=== PATIENT | female | born 1960 | race Caucasian/White ===

== ENCOUNTER 2018-08-25 09:20 | Emergency (ER) | payer BC ==
--- NOTE | 2018-08-25 09:40 | ED ---
GI/ HPI - HPI Summary HPI Summary: This patient is a 58 year old F presenting to [facility] with a chief complaint of vaginal bleeding since last night. Patient had an ablation 15 years ago and a trachelectomy July 2018. She had a checkup with her doctor on 08/22/2018. The patient rates the pain 4/10 in severity. Patient reports cramping. Patient denies weakness, lightheadedness, dizziness, feeling any masses, and fever. She reports that the bleeding was heavy last night with clots, but today it has bled less with no clots. Her LNMP was 12-14 years ago. - History of Current Complaint Chief Complaint: EDOBProblems Time Seen by Provider: 08/25/18 09:25 Stated Complaint: VAGINAL BLEEDING Hx Obtained From: Patient Onset/Duration: Started Hours Ago - Last night, Still Present Timing: Lasting Hours Severity: Moderate Current Severity: Mild Vaginal Bleeding Description: Clots Pain Intensity: 4 Associated Signs and Symptoms: Positive: Other: - Reports cramping. Denies lightheadedness or feeling any masses.. Negative: Dizziness, Weakness, Fever - Allergy/Home Medications Allergies/Adverse Reactions: Allergies Allergy/AdvReac Type Severity Reaction Status Date / Time No Known Allergies Allergy Verified 08/25/18 09:25 PMH/Surg Hx/FS Hx/Imm Hx Endocrine/Hematology History: Denies: Hx Diabetes Cardiovascular History: Denies: Hx Hypertension Infectious Disease History: No Infectious Disease History: Denies: Traveled Outside the [place] in Last 30 Days - Family History Known Family History: Positive: Other - Cancer Negative: Cardiac Disease, Diabetes - Social History Alcohol Use: Daily Alcohol Amount: 2-3 drinks a day Hx Substance Use: No Hx Tobacco Use: No Review of Systems Negative: Fever Positive: pain - Cramps, other - Reports vaginal bleeding. Denies feeling any masses. Neurological: Other - Denies lightheadedness Negative: Weakness All Other Systems Reviewed And Are Negative: Yes Physical Exam - Summary Physical Exam Summary: Appearance: Well appearing, no pain distress Skin: warm, dry, reflects adequate perfusion Head/face: normal Eyes: EOMI, ANGUS ENT: mucous membranes moist Neck: supple, non-tender Respiratory: CTA, breath sounds present Cardiovascular: RRR, pulses symmetrical Abdomen: non-tender, soft Bowel Sounds: present Musculoskeletal: normal, strength/ROM intact Neuro: normal, sensory motor intact, A&Ox3 GIGU: Tiny amount of blood from the cervix, but not bleeding of the cervix. No uterine tenderness or enlargement Triage Information Reviewed: Yes Vital Signs On Initial Exam: Initial Vitals Temp Pulse Resp BP Pulse Ox 97.1 F 69 14 153/79 96 08/25/18 09:25 18 09:25 18 09:25 08/25/18 09:25 08/25/18 09:25 Vital Signs Reviewed: Yes Diagnostics - Vital Signs Vital Signs Temp Pulse Resp BP Pulse Ox 08/25/18 09:25 97.1 F 69 14 153/79 96 - Laboratory Lab Statement: Any lab studies that have been ordered have been reviewed, and results considered in the medical decision making process. - Ultrasound No standard instances Ultrasound Interpretation Completed By: Radiologist - Transvaginal US. 11:37. Normal thickness of the endometrium. No adnexal masses are noted. ED Physician has reviewed this imaging report. GIGU Course/Dx - Course Course Of Treatment: Nurse's note reviewed. Patient presents 1 month after LEEP procedure on her cervix with vaginal bleeding. She is postmenopausal and experienced some bleeding with clotting. On exam there is minimal blood from the cervix rather than on it. Ultrasound is negative. She will likely need endometrial biopsy outpatient. I will place her on [place] and have her follow- up closely with [facility]. - Diagnoses Differential Diagnoses - Female: Other - Fibroid bleeding, dysfunctional bleeding, endometrial cancer, bleeding of the cervix itself Provider Diagnoses: Post-menopausal bleeding Discharge - Sign-Out/Discharge Documenting (check all that apply): Patient Departure - D/C - Discharge Plan Condition: Improved Disposition: HOME Prescriptions: Mefenamic Acid 250 mg PO TID #9 capsule Patient Education Materials: Dysfunctional Uterine Bleeding (ED) Referrals: Nicole Ortez MD [Medical Doctor] - Sukhdev Trujillo MD [Primary Care Provider] - Additional Instructions: You will need to be reevaluated by your OBGYN and will likely need an ENDOMETRIAL biopsy. - Billing Disposition and Condition Condition: IMPROVED Disposition: Home - Attestation Statements Document Initiated by Scribe: Yes Documenting Scribe: Kolton Kasper Provider For Whom Scribe is Documenting (Include Credential): Montana Islas MD Scribe Attestation: Kolton Ferguson, scribed for Montana Islas MD on 08/25/18 at 1158. Scribe Documentation Reviewed: Yes Provider Attestation: The documentation as recorded by the [email or web address] cardoso accurately reflects the service I personally performed and the decisions made by me, Montana Islas MD Status of Scribe Document: Viewed
[2018-08-25 10:49] VITALS: BP 136/87
== END 2018-08-25 10:48 | disposition home or self-care (01) ==
LOC: ED 09:20
DX: N95.0 Postmenopausal bleeding (principal)
CPT/HCPCS: 76830; 99282